=== PATIENT | female | born 1995 | race Caucasian/White ===

== ENCOUNTER 2018-04-16 11:21 | Emergency (ER) | payer OTHER ==
[~2018-04-16] VITALS: Ht 165.1 cm; Wt 70.3 kg
[2018-04-16 11:23] VITALS: BP 135/85
[2018-04-16] MEDS ORDERED: SEPTDS PO (11:41)
[2018-04-16] MEDS ORDERED: KEFLEX500 M1 PO (11:41)
[2018-04-16] MEDS ORDERED: ZOFRAN4 MG PO (11:41)
== END 2018-04-16 12:08 | disposition home or self-care (01) ==
LOC: ED 11:21
DX: L03.211 Cellulitis of face (principal); R03.0 Elevated blood-pressure reading, without diagnosis of hypertension; Z88.8 Allergy status to other drugs, medicaments and biological substances

== ENCOUNTER → 2018-04-26 | Outpatient (CLI) | payer OTHER ==
[~2018-04-26] MED LIST: KEFLEX500 M1 PO; SEPTDS PO; ZOFRAN4 MG PO
[2018-04-26 14:33] LABS: IRON 32 ug/dL (50-170); TOTAL IRON BINDING CAPACITY 261 ug/dl (250-450)
[2018-04-27 08:11] LABS: TRANSFERRIN 004937 203 mg/dL (200-370)
[2018-04-27 13:05] LABS: ANTI-DSDNA ANTIBODIES 096339 210 IU/mL (0-9)
== END | disposition home or self-care (01) ==
LOC: LAB 13:38
PROVIDERS: Family Medicine
DX: D64.9 Anemia, unspecified (principal); R76.0 Raised antibody titer

== ENCOUNTER 2018-07-24 13:57 | Emergency (ER) | payer OTHER ==
[~2018-07-24] VITALS: Ht 167.6 cm; Wt 71.2 kg
[2018-07-24] MEDS ORDERED: AMLODIPINE BESYL5 MG PO (14:08)
[2018-07-24] MEDS ORDERED: OMEPRAZOLE40 MG PO (14:08)
[2018-07-24] MEDS ORDERED: FEROSUL300 MG/6.8 PO (14:09)
[2018-07-24] MEDS ORDERED: VITAMIN D32000 UNI1 PO (14:09)
[2018-07-24 14:45] LABS: BILIRUBIN NEGATIVE (NEGATIVE); BLOOD 3+ (NEGATIVE); CLARITY SL CLOUDY (CLEAR); COLOR YELLOW (YELLOW); GLUCOSE NEGATIVE (NEGATIVE); KETONE NEGATIVE (NEGATIVE); LEUKO ESTERASE NEGATIVE (NEGATIVE); NITRITE NEGATIVE (NEGATIVE); UROBILINOGEN 0.2 E.U./dl (0.2-1.0)
[2018-07-24 14:46] LABS: BASO % 0.3 % (0.0-1.0); EOS # 0.1 10*3/uL (0.0-0.4); EOS % 1.4 % (1.0-4.0); HEMATOCRIT 34.2 % (37.0-47.0); HEMOGLOBIN 11.9 g/dl (12.0-16.0); LYMPH # 1.3 10*3/uL (1.3-4.4); LYMPH % 22.3 % (27.0-41.0); MEAN CELL VOLUME 84.2 fl (81.0-99.0); MEAN CORPUSCULAR HGB 29.3 pg (27.0-31.0); MEAN CORPUSCULAR HGB CONC 34.8 g/dl (33.0-37.0); MEAN PLATELET VOLUME 9.4 fl (9.6-12.3); MONO # 0.4 10*3/uL (0.1-1.0); MONO % 6.2 % (3.0-9.0); NEUT % 68.6 % (47.0-73.0); PLATELET COUNT AUTOMATED 186 10*3/uL (130-400); RED BLOOD COUNT 4.06 10*6/uL (4.10-5.10); RED CELL DISTRI WIDTH 12.6 % (0-14.5); WHITE BLOOD COUNT 5.8 10*3/uL (4.8-10.8)
[2018-07-24 14:52] LABS: RBC TNTC rbc/hpf (0-2)
[2018-07-24 15:01] LABS: ALBUMIN 1.4 gm/dl (3.1-4.5); ALKALINE PHOSPHATASE 103 U/L (45-117); BUN 24 mg/dl (7-24); CHLORIDE 100 mmol/L (98-107); CREATININE 0.99 mg/dL (0.55-1.02); POTASSIUM 4.9 mmol/L (3.5-5.1); SGOT/AST 31 IU/L (3-35); SGPT/ALT 18 U/L (12-78); SODIUM 134 mmol/L (136-145); TOTAL PROTEIN 4.7 gm/dL (6.4-8.2)
[2018-07-24 15:38] VITALS: BP 128/94
== END 2018-07-24 16:45 | disposition home or self-care (01) ==
LOC: ED 13:57
PROVIDERS: Student in an Organized Health Care Education/Training Program
DX: R80.9 Proteinuria, unspecified (principal); R60.0 Localized edema; Z88.2 Allergy status to sulfonamides; Z88.8 Allergy status to other drugs, medicaments and biological substances; Z79.899 Other long term (current) drug therapy

== ENCOUNTER → 2018-07-26 | Outpatient (CLI) | payer OTHER ==
[~2018-07-26] MED LIST changes: +AMLODIPINE BESYL5 MG PO; +FEROSUL300 MG/6.8 PO; +OMEPRAZOLE40 MG PO; +VITAMIN D32000 UNI1 PO
== END | disposition home or self-care (01) ==
LOC: LAB 12:01
DX: R77.9 Abnormality of plasma protein, unspecified (principal); M32.9 Systemic lupus erythematosus, unspecified

== ENCOUNTER → 2018-07-27 | Outpatient (CLI) | payer OTHER ==
--- NOTE | ~2018-07-27 | PF ---
[place], [place] PULMONARY FUNCTION TEST NAME: YOGESH MARK UNIT #: [id number] ROOM: DOCTOR: ROSEANN MURILLO MD,ANETTE BIRTHDATE: [birth year] DOS: 07/27/2018 The testing was ordered by Amy Singh. HISTORY: The patient recorded as 22-year-old female, height of 66 inches, weight 155 pounds with BMI of 25. The patient reported symptoms of mixed connective tissue disorder. No active respiratory symptoms were recorded. SPIROMETRY: The FVC of 3.15 liters, 77% predicted value. The FEV1 of 2.64 liters, 74% predicted value. The ratio of FEV1/FVC 84%. No significant changes noted postbronchodilator test. Flow volume loop for noted as mild restrictive airway pattern was suspected. The lung volumes, thoracic gas volume recorded as 66%, residual volume 92%, total lung capacity 80%. The lung diffusion recorded 51%, normal bilateral air resistance and passive conductance were partial improvement noted post-bronchodilator test. FINAL IMPRESSION: Moderate reduction of the lung diffusion noted, which is actually without correction of carbon monoxide hemoglobin value. The correlation to be made clinical history as of the radiology data. Suggested correlation with a hemoglobin and hematocrit as well as radiology data. ANETTE WHITFIELD MD CM:PFREPORT:PULMONARY FUNCTION TEST [id number] ANETTE MURILLO MD
== END | disposition home or self-care (01) ==
LOC: CP 07:24
DX: M35.1 Other overlap syndromes (principal)

== ENCOUNTER → 2018-10-04 | Outpatient (CLI) | payer OTHER ==
[2018-10-04 14:29] LABS: HEMATOCRIT 32.7 % (37.0-47.0); HEMOGLOBIN 9.7 g/dl (12.0-16.0); MEAN CELL VOLUME 103.5 fl (81.0-99.0); MEAN CORPUSCULAR HGB 30.7 pg (27.0-31.0); MEAN CORPUSCULAR HGB CONC 29.7 g/dl (33.0-37.0); MEAN PLATELET VOLUME 9.6 fl (9.6-12.3); PLATELET COUNT AUTOMATED 280 10*3/uL (130-400); RED BLOOD COUNT 3.16 10*6/uL (4.10-5.10); RED CELL DISTRI WIDTH 13.7 % (0-14.5); WHITE BLOOD COUNT 11.3 10*3/uL (4.8-10.8)
[2018-10-04 14:32] LABS: URINE CREATININE RANDOM 49.9 mg/dL
[2018-10-04 14:51] LABS: OVALOCYTES FEW; PLATELET SUFFICIENCY NORMAL (NORMAL); TOTAL CELLS COUNTED 100 #CELLS
[2018-10-05 08:08] LABS: COMPLEMENT C4 001834 18 mg/dL (14-44)
[2018-10-05 14:06] LABS: ANTI-DSDNA ANTIBODIES 096339 5 IU/mL (0-9)
== END | disposition home or self-care (01) ==
LOC: LAB 12:50 → CARD 13:00
PROVIDERS: Internal Medicine
DX: I07.1 Rheumatic tricuspid insufficiency (principal); M32.9 Systemic lupus erythematosus, unspecified; M32.14 Glomerular disease in systemic lupus erythematosus

== ENCOUNTER → 2018-10-27 | Outpatient (CLI) | payer OTHER ==
[2018-10-27 13:16] LABS: BASO # 0.1 10*3/uL (0.0-0.1); BASO % 0.4 % (0.0-1.0); EOS % 0.2 % (1.0-4.0); HEMATOCRIT 37.6 % (37.0-47.0); HEMOGLOBIN 11.7 g/dl (12.0-16.0); LYMPH # 1.6 10*3/uL (1.3-4.4); MEAN CELL VOLUME 97.4 fl (81.0-99.0); MEAN CORPUSCULAR HGB 30.3 pg (27.0-31.0); MEAN CORPUSCULAR HGB CONC 31.1 g/dl (33.0-37.0); MEAN PLATELET VOLUME 9.8 fl (9.6-12.3); MONO # 0.5 10*3/uL (0.1-1.0); MONO % 4.2 % (3.0-9.0); NEUT % 80.1 % (47.0-73.0); PLATELET COUNT AUTOMATED 308 10*3/uL (130-400); RED BLOOD COUNT 3.86 10*6/uL (4.10-5.10); RED CELL DISTRI WIDTH 12.8 % (0-14.5); WHITE BLOOD COUNT 12.5 10*3/uL (4.8-10.8)
[2018-10-27 13:35] LABS: URINE CREATININE RANDOM 21.9 mg/dL
[2018-10-27 13:43] LABS: BUN 30 mg/dl (7-24); CHLORIDE 100 mmol/L (98-107); CREATININE 0.97 mg/dL (0.55-1.02); POTASSIUM 3.6 mmol/L (3.5-5.1); SODIUM 140 mmol/L (136-145)
== END | disposition home or self-care (01) ==
LOC: LAB 12:37
PROVIDERS: Internal Medicine Critical Care Medicine
DX: M32.14 Glomerular disease in systemic lupus erythematosus (principal)

== ENCOUNTER → 2018-12-01 | Outpatient (CLI) | payer OTHER ==
[2018-12-01 12:28] LABS: BASO % 0.3 % (0.0-1.0); EOS # 0.1 10*3/uL (0.0-0.4); EOS % 0.8 % (1.0-4.0); HEMATOCRIT 28.7 % (37.0-47.0); HEMOGLOBIN 8.8 g/dl (12.0-16.0); LYMPH # 1.4 10*3/uL (1.3-4.4); LYMPH % 23.3 % (27.0-41.0); MEAN CELL VOLUME 94.1 fl (81.0-99.0); MEAN CORPUSCULAR HGB 28.9 pg (27.0-31.0); MEAN CORPUSCULAR HGB CONC 30.7 g/dl (33.0-37.0); MEAN PLATELET VOLUME 9.6 fl (9.6-12.3); MONO # 0.5 10*3/uL (0.1-1.0); MONO % 7.9 % (3.0-9.0); PLATELET COUNT AUTOMATED 326 10*3/uL (130-400); RED BLOOD COUNT 3.05 10*6/uL (4.10-5.10); RED CELL DISTRI WIDTH 13.7 % (0-14.5); WHITE BLOOD COUNT 5.9 10*3/uL (4.8-10.8)
[2018-12-01 12:39] LABS: BUN 19 mg/dl (7-24); CHLORIDE 104 mmol/L (98-107); CREATININE 1.06 mg/dL (0.55-1.02); POTASSIUM 3.7 mmol/L (3.5-5.1); SODIUM 142 mmol/L (136-145)
== END | disposition home or self-care (01) ==
LOC: LAB 11:44
PROVIDERS: Internal Medicine Critical Care Medicine
DX: M32.14 Glomerular disease in systemic lupus erythematosus (principal)

== ENCOUNTER → 2018-12-30 | Outpatient (CLI) | payer OTHER ==
[2018-12-30 14:28] LABS: BASO % 0.3 % (0.0-1.0); EOS % 0.3 % (1.0-4.0); HEMATOCRIT 32.5 % (37.0-47.0); LYMPH # 0.8 10*3/uL (1.3-4.4); LYMPH % 8.4 % (27.0-41.0); MEAN CELL VOLUME 96.4 fl (81.0-99.0); MEAN CORPUSCULAR HGB 29.7 pg (27.0-31.0); MEAN CORPUSCULAR HGB CONC 30.8 g/dl (33.0-37.0); MEAN PLATELET VOLUME 9.8 fl (9.6-12.3); MONO # 0.3 10*3/uL (0.1-1.0); MONO % 3.3 % (3.0-9.0); NEUT # 8.8 10*3/uL (2.3-7.9); NEUT % 87.1 % (47.0-73.0); PLATELET COUNT AUTOMATED 252 10*3/uL (130-400); RED BLOOD COUNT 3.37 10*6/uL (4.10-5.10); RED CELL DISTRI WIDTH 13.1 % (0-14.5); WHITE BLOOD COUNT 10.1 10*3/uL (4.8-10.8)
[2018-12-30 14:30] LABS: URINE CREATININE RANDOM 26.1 mg/dL
[2018-12-30 14:50] LABS: BUN 25 mg/dl (7-24); CHLORIDE 104 mmol/L (98-107); CREATININE 0.87 mg/dL (0.55-1.02); POTASSIUM 4.1 mmol/L (3.5-5.1); SODIUM 139 mmol/L (136-145)
== END | disposition home or self-care (01) ==
LOC: LAB 13:42
PROVIDERS: Internal Medicine Nephrology
DX: M32.14 Glomerular disease in systemic lupus erythematosus (principal)

== ENCOUNTER → 2019-01-12 | Outpatient (CLI) | payer OTHER ==
[2019-01-12 14:26] LABS: HEMATOCRIT 33.5 % (37.0-47.0); HEMOGLOBIN 10.3 g/dl (12.0-16.0); MEAN CELL VOLUME 95.4 fl (81.0-99.0); MEAN CORPUSCULAR HGB 29.3 pg (27.0-31.0); MEAN CORPUSCULAR HGB CONC 30.7 g/dl (33.0-37.0); MEAN PLATELET VOLUME 10.2 fl (9.6-12.3); RED BLOOD COUNT 3.51 10*6/uL (4.10-5.10); RED CELL DISTRI WIDTH 12.7 % (0-14.5); WHITE BLOOD COUNT 9.4 10*3/uL (4.8-10.8)
[2019-01-12 14:42] LABS: ALBUMIN 3.6 gm/dl (3.1-4.5); ALKALINE PHOSPHATASE 77 U/L (45-117); BUN 23 mg/dl (7-24); CHLORIDE 102 mmol/L (98-107); CREATININE 1.18 mg/dL (0.55-1.02); POTASSIUM 3.3 mmol/L (3.5-5.1); SGOT/AST 22 IU/L (3-35); SGPT/ALT 28 U/L (12-78); SODIUM 140 mmol/L (136-145); TOTAL PROTEIN 6.5 gm/dL (6.4-8.2)
[2019-01-12 14:44] LABS: FREE T4 0.94 ng/dl (0.76-1.46)
== END | disposition home or self-care (01) ==
LOC: LAB 14:06
PROVIDERS: Family Medicine
DX: E55.9 Vitamin D deficiency, unspecified (principal); L65.9 Nonscarring hair loss, unspecified; R53.83 Other fatigue

== ENCOUNTER → 2019-02-03 | Outpatient (CLI) | payer OTHER ==
[2019-02-03 13:27] LABS: BASO % 0.5 % (0.0-1.0); EOS # 0.1 10*3/uL (0.0-0.4); EOS % 0.8 % (1.0-4.0); HEMATOCRIT 32.9 % (37.0-47.0); LYMPH # 2.1 10*3/uL (1.3-4.4); LYMPH % 26.4 % (27.0-41.0); MEAN CORPUSCULAR HGB 28.6 pg (27.0-31.0); MEAN CORPUSCULAR HGB CONC 30.4 g/dl (33.0-37.0); MEAN PLATELET VOLUME 10.2 fl (9.6-12.3); MONO # 0.6 10*3/uL (0.1-1.0); MONO % 7.9 % (3.0-9.0); NEUT % 63.8 % (47.0-73.0); PLATELET COUNT AUTOMATED 278 10*3/uL (130-400); RED CELL DISTRI WIDTH 12.9 % (0-14.5); WHITE BLOOD COUNT 7.9 10*3/uL (4.8-10.8)
[2019-02-03 13:32] LABS: URINE CREATININE RANDOM 86.1 mg/dL
[2019-02-03 13:47] LABS: BUN 19 mg/dl (7-24); CHLORIDE 101 mmol/L (98-107); CREATININE 0.99 mg/dL (0.55-1.02); POTASSIUM 3.3 mmol/L (3.5-5.1); SODIUM 139 mmol/L (136-145)
== END | disposition home or self-care (01) ==
LOC: LAB 12:51
PROVIDERS: Internal Medicine Critical Care Medicine
DX: M32.14 Glomerular disease in systemic lupus erythematosus (principal)

== ENCOUNTER → 2019-02-16 | Outpatient (CLI) | payer OTHER ==
[2019-02-17 08:09] LABS: COMPLEMENT C4 001834 26 mg/dL (14-44)
[2019-02-17 13:07] LABS: ANTI-DSDNA ANTIBODIES 096339 5 IU/mL (0-9)
== END | disposition home or self-care (01) ==
LOC: LAB 11:34
DX: M53.3 Sacrococcygeal disorders, not elsewhere classified (principal); M32.19 Other organ or system involvement in systemic lupus erythematosus

== ENCOUNTER → 2019-04-06 | Outpatient (CLI) | payer OTHER ==
[2019-04-06 11:45] LABS: URINE CREATININE RANDOM 77.6 mg/dL
[2019-04-06 11:59] LABS: BASO % 0.4 % (0.0-1.0); EOS # 0.1 10*3/uL (0.0-0.4); HEMATOCRIT 34.2 % (37.0-47.0); HEMOGLOBIN 10.3 g/dl (12.0-16.0); LYMPH # 1.2 10*3/uL (1.3-4.4); LYMPH % 17.8 % (27.0-41.0); MEAN CELL VOLUME 95.8 fl (81.0-99.0); MEAN CORPUSCULAR HGB 28.9 pg (27.0-31.0); MEAN CORPUSCULAR HGB CONC 30.1 g/dl (33.0-37.0); MEAN PLATELET VOLUME 10.7 fl (9.6-12.3); MONO # 0.6 10*3/uL (0.1-1.0); MONO % 8.2 % (3.0-9.0); NEUT % 72.2 % (47.0-73.0); PLATELET COUNT AUTOMATED 242 10*3/uL (130-400); RED BLOOD COUNT 3.57 10*6/uL (4.10-5.10); RED CELL DISTRI WIDTH 13.2 % (0-14.5); WHITE BLOOD COUNT 6.9 10*3/uL (4.8-10.8)
[2019-04-06 12:03] LABS: BUN 13 mg/dl (7-24); CHLORIDE 103 mmol/L (98-107); CREATININE 0.75 mg/dL (0.55-1.02); POTASSIUM 3.5 mmol/L (3.5-5.1); SODIUM 141 mmol/L (136-145)
== END | disposition home or self-care (01) ==
LOC: LAB 10:23
PROVIDERS: Internal Medicine Nephrology
DX: M32.14 Glomerular disease in systemic lupus erythematosus (principal)

== ENCOUNTER → 2019-06-05 | Outpatient (CLI) | payer OTHER ==
[2019-06-05 13:33] LABS: BASO % 0.4 % (0.0-1.0); EOS % 0.4 % (1.0-4.0); HEMATOCRIT 41.9 % (37.0-47.0); HEMOGLOBIN 13.1 g/dl (12.0-16.0); LYMPH # 0.6 10*3/uL (1.3-4.4); LYMPH % 7.5 % (27.0-41.0); MEAN CORPUSCULAR HGB 27.5 pg (27.0-31.0); MEAN CORPUSCULAR HGB CONC 31.3 g/dl (33.0-37.0); MEAN PLATELET VOLUME 9.9 fl (9.6-12.3); MONO # 0.3 10*3/uL (0.1-1.0); MONO % 3.7 % (3.0-9.0); NEUT # 7.2 10*3/uL (2.3-7.9); NEUT % 87.8 % (47.0-73.0); PLATELET COUNT AUTOMATED 252 10*3/uL (130-400); RED BLOOD COUNT 4.76 10*6/uL (4.10-5.10); RED CELL DISTRI WIDTH 12.4 % (0-14.5); WHITE BLOOD COUNT 8.2 10*3/uL (4.8-10.8)
[2019-06-05 14:03] LABS: URINE CREATININE RANDOM 19.1 mg/dL
[2019-06-05 14:08] LABS: BUN 12 mg/dl (7-24); CHLORIDE 108 mmol/L (98-107); CREATININE 0.65 mg/dL (0.55-1.02); POTASSIUM 3.9 mmol/L (3.5-5.1); SODIUM 140 mmol/L (136-145)
== END | disposition home or self-care (01) ==
LOC: LAB 13:18
PROVIDERS: Internal Medicine Nephrology
DX: M32.14 Glomerular disease in systemic lupus erythematosus (principal)

== ENCOUNTER → 2019-08-04 | Outpatient (CLI) | payer OTHER ==
[2019-08-04 15:54] LABS: BASO % 0.6 % (0.0-1.0); EOS # 0.1 10*3/uL (0.0-0.4); EOS % 1.6 % (1.0-4.0); HEMATOCRIT 38.7 % (37.0-47.0); HEMOGLOBIN 12.2 g/dl (12.0-16.0); LYMPH # 1.7 10*3/uL (1.3-4.4); LYMPH % 27.1 % (27.0-41.0); MEAN CELL VOLUME 88.2 fl (81.0-99.0); MEAN CORPUSCULAR HGB 27.8 pg (27.0-31.0); MEAN CORPUSCULAR HGB CONC 31.5 g/dl (33.0-37.0); MEAN PLATELET VOLUME 10.3 fl (9.6-12.3); MONO # 0.5 10*3/uL (0.1-1.0); MONO % 7.9 % (3.0-9.0); NEUT # 3.9 10*3/uL (2.3-7.9); NEUT % 62.5 % (47.0-73.0); PLATELET COUNT AUTOMATED 228 10*3/uL (130-400); RED BLOOD COUNT 4.39 10*6/uL (4.10-5.10); WHITE BLOOD COUNT 6.3 10*3/uL (4.8-10.8)
[2019-08-04 16:19] LABS: BUN 14 mg/dl (7-24); CHLORIDE 107 mmol/L (98-107); CREATININE 0.62 mg/dL (0.55-1.02); PHOSPHOROUS 3.7 mg/dL (2.5-4.9); POTASSIUM 3.8 mmol/L (3.5-5.1); SODIUM 141 mmol/L (136-145)
[2019-08-04 16:58] LABS: URINE CREATININE RANDOM < 13.00 mg/dL
[2019-08-04 17:02] LABS: BILIRUBIN NEGATIVE (NEGATIVE); BLOOD 1+ (NEGATIVE); CLARITY CLEAR (CLEAR); COLOR STRAW (YELLOW); GLUCOSE NEGATIVE (NEGATIVE); KETONE NEGATIVE (NEGATIVE); NITRITE NEGATIVE (NEGATIVE); SPECIFIC GRAVITY 1.005 (1.005-1.030); UROBILINOGEN 0.2 E.U./dl (0.2-1.0)
[2019-08-04 17:04] LABS: BACTERIA TRACE; EPITHELIAL CELLS 0-2; LEUKO ESTERASE NEGATIVE (NEGATIVE); WBC 0-2 wbc/hpf (0-5)
[2019-08-05 05:04] LABS: COMPLEMENT C4 001834 23 mg/dL (14-44)
[2019-08-07 14:08] LABS: ANTI-DSDNA ANTIBODIES 096339 5 IU/mL (0-9)
== END | disposition home or self-care (01) ==
LOC: LAB 15:07
DX: M32.14 Glomerular disease in systemic lupus erythematosus (principal); E55.9 Vitamin D deficiency, unspecified